=== PATIENT | male | born 1990 | race Caucasian/White ===

== ENCOUNTER 2021-08-20 10:22 | Emergency (ER) | payer OTHER ==
[~2021-08-20] VITALS: Ht 175.3 cm; Wt 75.3 kg
[2021-08-20] MEDS ORDERED: KETO10TA2 PO (14:13)
[2021-08-20] MEDS ORDERED: ORPHENADRINE C100 MG PO (14:13)
== END 2021-08-20 14:41 | disposition home or self-care (01) ==
LOC: ER 10:22
DX: S93.402A Sprain of unspecified ligament of left ankle, initial encounter (principal); X50.0XXA Overexertion from strenuous movement or load, initial encounter; Y93.89 Activity, other specified; Y92.89 Other specified places as the place of occurrence of the external cause; Y99.8 Other external cause status

== ENCOUNTER 2021-09-11 07:40 | Outpatient (CLI) | payer OTHER ==
[~2021-09-11 07:40] MED LIST: KETO10TA2 PO; ORPHENADRINE C100 MG PO
== END 2021-09-11 07:45 | disposition home or self-care (01) ==
LOC: SONOGRAMA 07:40
PROVIDERS: ATTEND Family Medicine
DX: S93.492A Sprain of other ligament of left ankle, initial encounter (principal); M25.472 Effusion, left ankle

== ENCOUNTER 2023-03-26 05:55 | Emergency (ER) | payer OTHER ==
[~2023-03-26] VITALS: Ht 175.3 cm; Wt 104.3 kg
[2023-03-26] MEDS ORDERED: DICLOFENAC SODI75 MG PO (10:20)
== END 2023-03-26 10:38 | disposition home or self-care (01) ==
LOC: ER 05:55
PROVIDERS: General Practice
DX: M54.59 Other low back pain (principal); R50.9 Fever, unspecified; Z20.822 Contact with and (suspected) exposure to COVID-19